=== PATIENT | male | born 1975 | race Caucasian/White ===

== ENCOUNTER 2016-03-04 08:21 | Emergency (ER) | payer OTHER ==
[2016-03-04 09:08] LABS: #Basophils 0.1 thou/uL (0.0-0.2); #Eosinphils 0.1 thou/uL (0.0-0.7); #Lymphocytes 2.1 thou/uL (1.20-3.40); #Monocytes 0.5 thou/uL (0.11-0.59); #Neutrophils 2.9 thou/uL (1.40-6.50); %Basophils 1.7 % (0.0-1.0); %Lymphocytes 36.7 % (21.0-51.0); %Monocytes 9.4 % (0.0-10.0); Hematocrit 43.1 % (42.0-52.0); Mean Platelet Volume 6.3 fL (7.4-10.4); Red Blood Cell (RBC) Count 4.64 mill/uL (4.70-6.10); White Blood Cell (WBC) Count 5.7 thou/uL (4.8-10.8)
--- NOTE | 2016-03-04 09:08 | RAD ---
FRONTAL RADIOGRAPH OF CHEST: Date: 03/04/16 COMPARISON: None available. HISTORY: Shortness of breath and dyspnea. FINDINGS: Heart and mediastinal contour grossly unremarkable. Lungs are clear. No acute osseous abnormality. IMPRESSION: No acute findings. POS: [facility]
[2016-03-04 09:24] LABS: Troponin I Less than 0.010 ng/mL (< 0.028)
[2016-03-04 09:31] LABS: ALT (SGPT) 680 U/L (0-55); AST (SGOT) 266 U/L (5-34); Alkaline Phosphatase 107 U/L (40-150); Anion Gap 10 mmol/L (10-20); BUN (Urea Nitrogen) 10 mg/dL (8.9-20.6); Bilirubin, Total 0.4 mg/dL (0.2-1.2); CK (CPK) 116 U/L (30-200); Calc. Creatinine Clearance 0 mL/min (70-130); Calcium 8.8 mg/dL (7.8-10.44); Carbon Dioxide 27 mmol/L (22-29); Chloride 107 mmol/L (98-107); Estimated GFR-MDRD Greater than 90; Globulin 3.1 g/dL (2.4-3.5); Protein, Total 7.1 g/dL (6.0-8.3)
--- NOTE | 2016-03-04 10:20 | ERRECORD ---
[facility] EMERGENCY RECORD HPI ANXIETY (10:56 JLOY) CHIEF COMPLAINT: Patient presents for evaluation of anxiety, Patient presents for evaluation of shortness of breath, Patient presents for evaluation of palpitations, Patient presents for evaluation of Pt with 1 hour of SOB and palpitations. Feels anxious. No previous episodes but has alot more stress curently than ever before in his life. HISTORIAN: History provided by patient. LOCATION: No localizing symptoms. QUALITY: Patient is alert and oriented to person, place and time, Sherri coma score is 15. TIME COURSE: Patient unable to describe onset of symptoms, Symptoms are improving, are constant. ASSOCIATED WITH: No associated depression, No associated syncope, No associated substance abuse, No associated tremulousness. EXACERBATED BY: Patient's condition exacerbated by financial issues, Patient's condition exacerbated by personal problems. RELIEVED BY: Patient's condition relieved by time. ROS (10:57 JLOY) CONSTITUTIONAL: Historian denies chills, denies fever. ENT: Historian denies rhinorrhea, denies sore throat. CARDIOVASCULAR: Historian denies chest pain, reports palpitations. RESPIRATORY: Historian denies cough, reports shortness of breath, denies sputum. GI: Historian denies abdominal pain, denies diarrhea, denies nausea, denies vomiting. GENITOURINARY MALE: Historian denies dysuria, denies hematuria. MUSCULOSKELETAL: Historian denies arthralgias, denies back pain, denies myalgias, denies neck pain. SKIN: Historian denies rash, denies skin changes. NEUROLOGIC: Historian denies dizziness, denies headache, denies paralysis, denies paresthesias, denies sensory changes. PAST MEDICAL HISTORY MEDICAL HISTORY: Flu vaccine not up to date, Tetanus immunization up to date, Pneumococcal vaccine not up to date. (08:29 JPAR) MALE SURGICAL HISTORY: Patient has no surgical history. (08:29 JPAR) SOCIAL HISTORY: Patient denies alcohol use, Patient denies drug use, Patient currently uses tobacco, smokes cigarettes, daily, Patient has smoked for 15 years, Patient smokes 1 pack per day, Patient currently uses tobacco, smokes cigarettes, daily, Patient has smoked for 15 years, Patient smokes 1 pack per day. (08:29 JPAR) NOTES: Nursing records reviewed, Agree with nursing records. (10:58 JLOY) &a-1R&a+25V*p+0X*a4256C*c202B*c15G*c2P*p-0X&a-25V&a+1R Name: Jasbir Blankenship : 1975 M40 MedRec: [id number] AcctNum: [id number] Prepared: [facility] Mar 04, 2016 11:02 by Interface Page 1 of 3 pMD [facility] EMERGENCY RECORD KNOWN ALLERGIES PCN CURRENT MEDICATIONS (08:28 JPAR) None VITAL SIGNS VITAL SIGNS: Resp: 18, Pain: 0, Time: 03/04/2016 08:25. (08:25 JPAR) BP: 143/93, Pulse: 68 (Regular), Resp: 17, Temp: 97.9 (Oral), Pain: 0, O2 sat: 97 on Room Air, Time: 03/04/2016 08:29. (08:29 JPAR) BP: 133/76, Pulse: 59, Resp: 17, Pain: 0, O2 sat: 98, Time: 03/04/2016 09:51. (09:51 JPAR) PHYSICAL EXAM (10:57 [facility]) CONSTITUTIONAL: Vital signs reviewed, Patient appears non toxic, Patient alert and oriented to person, place and time. EYES: Eye exam included findings of eyelids normal to inspection, Pupils equally round and reactive to light, Conjunctiva normal. ENT: Pharynx exam normal, Uvula exam normal, Tonsil exam normal, Mouth exam normal, mucous membranes moist. NECK: Neck exam included findings of normal range of motion, Trachea midline, no jugular venous distention, no cervical adenopathy. RESPIRATORY CHEST: Respiratory exam included findings of no respiratory distress, Breath sounds clear, No wheezing, No rales, No rhonchi, Chest exam included findings of chest movement symmetrical. CARDIOVASCULAR: Cardiovascular exam included findings of heart rate regular rate and rhythm, Heart sounds normal. ABDOMEN MALE: Abdominal exam included findings of abdomen nontender, Bowel sounds normal. BACK: Back exam included findings of normal inspection, range of motion normal. UPPER EXTREMITY: Upper extremity exam included findings of inspection normal, Radial pulse normal, no cyanosis, no clubbing, no edema. LOWER EXTREMITY: Lower extremity exam included findings of inspection normal, no edema, no calf tenderness. NEURO: Sherri coma scale 15, Neuro exam findings include patient oriented to person, place and time, Speech normal. SKIN: Skin exam included findings of skin warm, dry, and normal in color, no rash. PSYCHIATRIC: Affect, anxious. PROBLEM LIST No recorded problems DIAGNOSIS (10:02 JARROD) FINAL: PRIMARY: Anxiety. &a-1R&a+25V*p+0X*v2690E*c202B*c15G*c2P*p-0X&a-25V&a+1R Name: Jasbir Blankenship : 1975 10 MedRec: [id number] AcctNum: [id number] Prepared: Krystle Mar 04, 2016 11:02 by Interface Page 2 of 3 pMD [facility] EMERGENCY RECORD PRESCRIPTION (10: JARROD) clonazePAM: TABLET : 0.5 mg : ORAL : Quantity: 0.5 Unit: mg Route: ORAL Schedule: 2 times a day Dispense: 6 May substitute. Refills: No Refills . NOTES: as needed for anxiety No Refills. DISPOSITION PATIENT: Disposition Type: Discharge, Disposition: *Discharge Home. (10:02 JARROD) Patient left the department. (10:12 YURI) Cali: JARROD=MD Moisés, Ole WELCH=JEROME Ritter, Kadeem &a-1R&a+25V*p+0X*g4249W*c202B*c15G*c2P*p-0X&a-25V&a+1R Name: Jasbir Blankenship Shae : 1975 10 MedRec: [id number] AcctNum: [id number] Prepared: [facility] Mar 04, 2016 11:02 by Interface Page 3 of 3 pMD MTDD
--- NOTE | 2016-03-04 10:26 | PICIS ---
[facility] EMERGENCY RECORD TRIAGE (TueMar 04, 2016 08:27 JPAR) TRIAGE NOTES: shortness of breath, anxiety started 1 hour, increased stress lately. (TueMar 04, 2016 08:27 JPAR) PATIENT: NAME: Jasbir Blankenship, AGE: 40, GENDER: male, : Tue1975, TIME OF GREET: TueMar 04, 2016 08:21, PREFERRED LANGUAGE: Arabic, ETHNICITY: Not or , ECODE BILLING MAP: [facility], SSN: [id number], Zip Code: [address], KG WEIGHT: 95.25, PHONE: , , , PERSON ID: [id number], PCP: Greg . (TueMar 04, 2016 08:27 JPAR) COMPLAINT: NERVOUSNESS/SHORTNESS OF BREATH/CHEST PAIN. (TueMar 04, 2016 08:27 JPAR) ADMISSION: URGENCY: 3 Urgent, ADMISSION SOURCE: Work, TRANSPORT: CAR, BED: TRIAGE. (TueMar 04, 2016 08:27 JPAR) ASSESSMENT: Assessment: stress and anxiety w/ shortness of breath,started 1 hour ago at work, Symptoms began 1 hour, Symptoms began 1 hour ago. (08:29 JPAR) SIRS SCORING: Heart Rate 55-109 (0), Temp range 96.8-101.1 (0), respiratory rate 12-24 (0), Mental Status altered: no (0), Infection or Suspected Infection: No. (08:29 JPAR) TRIAGE SCREENING: Patient denies suicidal ideation, Patient denies presence of domestic violence. (08:29 JPAR) PROVIDERS: TRIAGE NURSE: Kadeem Ritter RN. (TueMar 04, 2016 08:27 JPAR) VITAL SIGNS: Resp 18, Pain 0, Time 03/04/2016 08:25. (08:25 JPAR) PREVIOUS VISIT ALLERGIES: PCN. (TueMar 04, 2016 08:27 JPAR) PCN. (08:29 JPAR) KNOWN ALLERGIES PCN CURRENT MEDICATIONS (08:28 JPAR) None VITAL SIGNS VITAL SIGNS: Resp: 18, Pain: 0, Time: 03/04/2016 08:25. (08:25 JPAR) BP: 143/93, Pulse: 68 (Regular), Resp: 17, Temp: 97.9 (Oral), Pain: 0, O2 sat: 97 on Room Air, Time: 03/04/2016 08:29. (08:29 JPAR) BP: 133/76, Pulse: 59, Resp: 17, Pain: 0, O2 sat: 98, Time: 03/04/2016 09:51. (09:51 JPAR) NURSING ASSESSMENT: CARDIOVASCULAR (08:32 JPAR) CONSTITUTIONAL: Patient arrives ambulatory, Gait steady, History obtained from patient, Patient appears, anxious, Patient cooperative, Patient alert, Oriented to person, place and time, Skin warm, Skin dry, Skin normal in color, Mucous membranes pink, Mucous membranes moist, Patient complains of Anxiety with SOB. PAIN: Patient rates pain as 0 out of 10. CARDIOVASCULAR: Cardiovascular assessment findings include heart &a-1R&a+25V*p+0X*z5892Q*c202B*c15G*c2P*p-0X&a-25V&a+1R Name: Jasbir Blankenship Shae : 1975 M40 MedRec: [id number] AcctNum: [id number] Prepared: Krystle Mar 04, 2016 11:07 by Interface Page 1 of 8 pMD [facility] EMERGENCY RECORD rate normal, Heart rhythm normal sinus, Left radial pulse +3(easily palpated, considered normal), Right radial pulse +3(easily palpated, considered normal), Left dorsalis pedis pulse +3(easily palpated, considered normal), Right dorsalis pedis pulse +3(easily palpated, considered normal), No associated diaphoresis, no associated dyspnea, no associated dizziness, no associated edema, no associated palpitations, no associated paresthesias, no associated syncopal episode, no associated weakness, No history of pulmonary embolism, No history of DVT or leg swelling. RESPIRATORY/CHEST: Breath sounds clear, Respiratory assessment findings include respiratory effort easy, Respirations regular, Conversing normally, Neck and chest exam findings include trachea midline, Chest expansion equal, Chest movement symmetrical, no signs of distress, no retractions noted, no cyanosis, no jugular vein distension, no tenderness to palpation, no crepitus noted, no subcutaneous emphysema noted, no deformity noted, Associated with cough, dry, non-productive, no associated fever, Associated with fume exposure, to smoke, Length of exposure (minutes): Pt smokes 1 pack daily. SAFETY: Side rails up, Cart/Stretcher in lowest position, Call light within reach, Hospital ID band on. NURSING ASSESSMENT: PSYCH/SOCIAL (08:39 JPAR) CONSTITUTIONAL: Patient arrives ambulatory, Gait steady, History obtained from patient, Patient appears, anxious, Patient cooperative, Patient alert, Oriented to person, place and time, Skin warm, Skin dry, Skin normal in color, Mucous membranes pink, Mucous membranes moist, Patient complains of Anxiety with SOB, Has been worrying about father that last year. PSYCH/SOCIAL: Psychiatric/social assessment findings include affect, anxious, no complaint of visual hallucinations, no complaint of auditory hallucinations, no complaint of tactile hallucinations, no suicidal ideations, no homicidal ideations, no reported overdose. SUICIDE RISK ASSESSMENT TOOL: Suicide Risk Assessment findings: Mental State (Low risk):, no psychotic symptoms, feels hopeful about the future, Suicide Attempt or Suicidal Thoughts (Low risk):, no suicidal thoughts, Substance Disorder (Low risk):, infrequent use of substances, Corroborative History (Low risk):, able to verify information and account of events of person at risk, Strengths and Support (Low risk):, patient is accepting help, Reflective Practice (Low risk):, high assessment confidence, low changeability, established good rapport, good engagement with patient, Suicide Risk: None, no evidence of current risk to the person, no thought of suicide or history of attempts, good social support network, This person's risk level in not highly changeable, No, there are no factors that indicate a level of uncertainty in this risk assessment, indicating an assessment confidence. SAFETY: Side rails up, Cart/Stretcher in lowest position, Call &a-1R&a+25V*p+0X*a6113L*c202B*c15G*c2P*p-0X&a-25V&a+1R Name: Jasbir Blankenship : 1975 M40 MedRec: [id number] AcctNum: [id number] Prepared: Krystle Mar 04, 2016 11:07 by Interface Page 2 of 8 pMD [facility] EMERGENCY RECORD light within reach, Hospital ID band on. NURSING PROCEDURE: BEDSIDE RADIOLOGY (08:52 CCRI) BEDSIDE RADIOLOGY: Bedside radiology performed by CC, Portable chest x-ray performed. NURSING PROCEDURE: DISCHARGE NOTE (10:05 JPAR) DISCHARGE: Patient discharged to home, ambulating without assistance, driving self, unaccompanied, Summary of Care printed/ provided, Patient requested and was provided an electronic copy of Discharge Instructions, Transition record given to patient, Discharge instructions given to patient, Simple or moderate discharge teaching performed, Prescriptions given and instructions on side effects given, Name of prescription(s) given: Clonazepam, Medication reconciliation form given, Above person(s) verbalized understanding of discharge instructions and follow-up care, Patient treated and evaluated by physician. BELONGINGS: Belongings and valuables with patient at time of discharge include:, Belongings remain with patient, Valuables remain with patient. SAFETY: Side rails up, Cart/Stretcher in lowest position, Call light within reach, Hospital ID band on. NURSING PROCEDURE: EKG CHART (08:32 JPAR) PATIENT IDENTIFIER: Patient actively involved in identification process, Patient's identity verified by patient stating name, Patient's identity verified by patient stating date, Patient's identity verified by hospital ID bracelet, Patient's identity verified by family member. EKG: EKG indicated for complaint of chest pain, EKG indicated for Anxiety, 12 lead EKG performed on the left chest, done by Juanita, first EKG. FOLLOW-UP: After procedure, EKG for interpretation given to Dr. Curiel. SAFETY: Side rails up, Cart/Stretcher in lowest position, Call light within reach, Hospital ID band on. NURSING PROCEDURE: LAB DRAW (08:50 JPAR) PATIENT IDENTIFIER: Patient actively involved in identification process, Patient's identity verified by patient stating name, Patient's identity verified by patient stating date, Patient's identity verified by hospital ID bracelet. LAB DRAW: Lab draw indicated for obtaining specimens for evaluation, Initial lab draw performed, by venipuncture, from left antecubital, in one attempt, Lab specimens labeled in the presence of the patient and sent to lab. FOLLOW-UP: After procedure, dressing applied to site, After procedure, no swelling at site, After procedure, no active bleeding from site. SAFETY: Side rails up, Cart/Stretcher in lowest position, Call &a-1R&a+25V*p+0X*i1240H*c202B*c15G*c2P*p-0X&a-25V&a+1R Name: Jasbir Blankenship : 1975 M40 MedRec: [id number] AcctNum: [id number] Prepared: TueMar 04, 2016 11:07 by Interface Page 3 of 8 pMD [facility] EMERGENCY RECORD light within reach, Hospital ID band on. NURSING PROCEDURE: NURSE NOTES (09:53 JPAR) NURSES NOTES: Patient in no apparent distress, Patient resting quietly, Patient is awaiting disposition, Notes: Pt in no distress w/ stable vitals, pt states he still feels anxious and jittery but less than when he came into ER. ORDER DETAILS Order Name: [employer] [facility], Status: Done, Time: 08:50 03/04/2016, User: ANA MARIA, - Ordered for: MD Curiel Joshua, - Entered by: MD Curiel Joshua - Krystle Mar 04, 2016 08:42, - Quantity: 1, Order Name: Cardiac Profile w/CKMB & Troponin - I, Status: Active, Time: 08:42 03/04/2016, User: JARROD, - Ordered for: MD Curiel Joshua, - Entered by: MD Curiel Joshua - Krystle Mar 04, 2016 08:42, - Quantity: 1, Order Name: CBC with Differential, Status: Active, Time: 08:42 03/04/2016, User: JARROD, - Ordered for: MD Curiel Joshua, - Entered by: MD Curiel Joshua - Krystle Mar 04, 2016 08:42, - Quantity: 1, Order Name: CK (CPK), Status: Active, Time: 08:42 03/04/2016, User: JARROD, - Ordered for: MD Curiel Joshua, - Entered by: MD Curiel Joshua - [facility] Mar 04, 2016 08:42, - Quantity: 1, Order Name: Comprehensive Metabolic Panel, Status: Active, Time: 08:42 03/04/2016, User: JLOY, - Ordered for: MD Curiel Joshua, - Entered by: MD Curiel Joshua - [facility] Mar 04, 2016 08:42, - Quantity: 1, Order Name: EKG 12 Lead in Emergency Room, Status: Active, Time: 08:42 03/04/2016, User: JARROD, - Ordered for: MD Curiel Joshua, - Entered by: MD Curiel Joshua - [facility] Mar 04, 2016 08:42, - Quantity: 1, Order Name: XR Chest 1 View Portable, Status: Active, Time: 08:42 03/04/2016, User: JARROD, - Ordered for: MD Curiel Joshua, - Entered by: MD Curiel Joshua - [facility] Mar 04, 2016 08:42, - Quantity: 1. HPI ANXIETY (10:56 JARROD) CHIEF COMPLAINT: Patient presents for evaluation of anxiety, Patient presents for evaluation of shortness of breath, Patient presents for evaluation of &a-1R&a+25V*p+0X*i7194Z*c202B*c15G*c2P*p-0X&a-25V&a+1R Name: Jasbir Blankenship : 1975 M40 MedRec: [id number] AcctNum: [id number] Prepared: TueMar 04, 2016 11:07 by Interface Page 4 of 8 pMD [facility] EMERGENCY RECORD palpitations, Patient presents for evaluation of Pt with 1 hour of SOB and palpitations. Feels anxious. No previous episodes but has alot more stress curently than ever before in his life. HISTORIAN: History provided by patient. LOCATION: No localizing symptoms. QUALITY: Patient is alert and oriented to person, place and time, [place] coma score is 15. TIME COURSE: Patient unable to describe onset of symptoms, Symptoms are improving, are constant. ASSOCIATED WITH: No associated depression, No associated syncope, No associated substance abuse, No associated tremulousness. EXACERBATED BY: Patient's condition exacerbated by financial issues, Patient's condition exacerbated by personal problems. RELIEVED BY: Patient's condition relieved by time. ROS (10:57 JLDENNIS) CONSTITUTIONAL: Historian denies chills, denies fever. ENT: Historian denies rhinorrhea, denies sore throat. CARDIOVASCULAR: Historian denies chest pain, reports palpitations. RESPIRATORY: Historian denies cough, reports shortness of breath, denies sputum. GI: Historian denies abdominal pain, denies diarrhea, denies nausea, denies vomiting. GENITOURINARY MALE: Historian denies dysuria, denies hematuria. MUSCULOSKELETAL: Historian denies arthralgias, denies back pain, denies myalgias, denies neck pain. SKIN: Historian denies rash, denies skin changes. NEUROLOGIC: Historian denies dizziness, denies headache, denies paralysis, denies paresthesias, denies sensory changes. PAST MEDICAL HISTORY MEDICAL HISTORY: Flu vaccine not up to date, Tetanus immunization up to date, Pneumococcal vaccine not up to date. (08:29 JPAR) MALE SURGICAL HISTORY: Patient has no surgical history. (08:29 JPAR) SOCIAL HISTORY: Patient denies alcohol use, Patient denies drug use, Patient currently uses tobacco, smokes cigarettes, daily, Patient has smoked for 15 years, Patient smokes 1 pack per day, Patient currently uses tobacco, smokes cigarettes, daily, Patient has smoked for 15 years, Patient smokes 1 pack per day. (08:29 JPAR) NOTES: Nursing records reviewed, Agree with nursing records. (10:58 JLOY) PHYSICAL EXAM (10:57 JLOY) CONSTITUTIONAL: Vital signs reviewed, Patient appears non toxic, Patient alert and oriented to person, place and time. EYES: Eye exam included findings of eyelids normal to inspection, &a-1R&a+25V*p+0X*g1758R*c202B*c15G*c2P*p-0X&a-25V&a+1R Name: Jasbir Blankenship Shae : 1975 M40 MedRec: [id number] AcctNum: [id number] Prepared: TueMar 04, 2016 11:07 by Interface Page 5 of 8 pMD [facility] EMERGENCY RECORD Pupils equally round and reactive to light, Conjunctiva normal. ENT: Pharynx exam normal, Uvula exam normal, Tonsil exam normal, Mouth exam normal, mucous membranes moist. NECK: Neck exam included findings of normal range of motion, Trachea midline, no jugular venous distention, no cervical adenopathy. RESPIRATORY CHEST: Respiratory exam included findings of no respiratory distress, Breath sounds clear, No wheezing, No rales, No rhonchi, Chest exam included findings of chest movement symmetrical. CARDIOVASCULAR: Cardiovascular exam included findings of heart rate regular rate and rhythm, Heart sounds normal. ABDOMEN MALE: Abdominal exam included findings of abdomen nontender, Bowel sounds normal. BACK: Back exam included findings of normal inspection, range of motion normal. UPPER EXTREMITY: Upper extremity exam included findings of inspection normal, Radial pulse normal, no cyanosis, no clubbing, no edema. LOWER EXTREMITY: Lower extremity exam included findings of inspection normal, no edema, no calf tenderness. NEURO: [place] coma scale 15, Neuro exam findings include patient oriented to person, place and time, Speech normal. SKIN: Skin exam included findings of skin warm, dry, and normal in color, no rash. PSYCHIATRIC: Affect, anxious. EVENTS TRANSFER: Triage to Emergency Triage. (TueMar 04, 2016 08:27 JPAR) Emergency Triage to Emergency Room -02. (08:28 JPAR) Removed from Emergency Emergency Room -02. (10:12 JPAR) PROBLEM LIST No recorded problems DIAGNOSIS (10:02 JLOY) FINAL: PRIMARY: Anxiety. DISPOSITION PATIENT: Disposition Type: Discharge, Disposition: *Discharge Home. (10:02 JLOY) Patient left the department. (10:12 JPAR) INSTRUCTION (10:03 JLOY) DISCHARGE: ANXIETY REACTION. FOLLOWUP: Kenji AHMADI, FLAKO, Gastroenterology, [address] [facility] [place] [place] [address], [phone], Follow up with Primary Care Physician in 5 days, Follow up with Specialist in 10-14 days. SPECIAL: Your liver had a few numbers that were higher than normal and could be a sign of inflammation. Please follow up with a &a-1R&a+25V*p+0X*z2666X*c202B*c15G*c2P*p-0X&a-25V&a+1R Name: Jasbir Blankenship : 1975 M40 MedRec: [id number] AcctNum: [id number] Prepared: TueMar 04, 2016 11:07 by Interface Page 6 of 8 pMD [facility] EMERGENCY RECORD GI doctor in the next few weeks to have this evaluated. PRESCRIPTION (:02 [facility]) clonazePAM: TABLET : 0.5 mg : ORAL : Quantity: 0.5 Unit: mg Route: ORAL Schedule: 2 times a day Dispense: 6 May substitute. Refills: No Refills . NOTES: as needed for anxiety No Refills. IMAGING *EKG: Image captured from scanner. (08:57 JPAR) *DISCHARGE INSTRUCTIONS RECEIPT: Image captured from scanner. (10:10 JPAR) *SUPPLY CHARGE SHEET: Image captured from scanner. (10:10 JPAR) ADMIN DIGITAL SIGNATURE: JEROME Ritter, Kadeem. (10:11 JPAR) MD Moisés, Ole. (10:58 JL) RESULTS LABORATORY: CBC with Differential Collection DT: TueMar 04, 2016 08:55, White Blood Cell (WBC) Count 5.7 thou/uL, Range (4.8-10.8), *Red Blood Cell (RBC) Count 4.64 - L mill/uL, Range (4.70-6.10), Hemoglobin 14.3 g/dL, Range (14.0-18.0), Hematocrit 43.1 %, Range (42.0-52.0), Mean Corpuscular Volume 93.0 fl, Range (80.0-94.0), Mean Corpuscular Hemoglobin 30.9 pg, Range (27.0-31.0), Mean Corpuscular HGB CONC 33.2 g/dL, Range (32.0-36.0), RBC Distribution Width 12.0 %, Range (11.5-14.5), Platelet Count 262 thou/uL, Range (130-400), *Mean Platelet Volume 6.3 - L fL, Range (7.4-10.4), %Neutrophils 50.1 %, Range (42.0-75.0), %Lymphocytes 36.7 %, Range (21.0-51.0), %Monocytes 9.4 %, Range (0.0-10.0), %Eosinophils 2.0 %, Range (0.0-10.0), *%Basophils 1.7 - H %, Range (0.0-1.0), #Neutrophils 2.9 thou/uL, Range (1.40-6.50), #Lymphocytes 2.1 thou/uL, Range (1.20-3.40), #Monocytes 0.5 thou/uL, Range (0.11-0.59), #Eosinphils 0.1 thou/uL, Range (0.0-0.7), #Basophils 0.1 thou/uL, Range (0.0-0.2). (09:15 [facility]) CK (CPK) Collection DT: TueMar 04, 2016 08:55, CK (CPK) 116 U/L, Range (30-200). (09:49 [facility]) Comprehensive Metabolic Panel Collection DT: TueMar 04, 2016 08:55, Sodium 140 mmol/L, Range (136-145), Potassium 3.9 mmol/L, Range (3.5-5.1), Chloride 107 mmol/L, Range (98-107), Carbon Dioxide 27 mmol/L, Range (22-29), Anion Gap 10 mmol/L, Range (10-20), &a-1R&a+25V*p+0X*l4071A*c202B*c15G*c2P*p-0X&a-25V&a+1R Name: Blankenship, Jasbir Shae : 1975 M40 MedRec: [id number] AcctNum: [id number] Prepared: TueMar 04, 2016 11:07 by Interface Page 7 of 8 pMD [facility] EMERGENCY RECORD BUN (Urea Nitrogen) 10 mg/dL, Range (8.9-20.6), Creatinine 0.78 mg/dL, Range (0.7-1.3), Estimated GFR-MDRD Greater than 90 , Reference Range for Estimated GFR: Greater than 90, mL/min/1.73 m2 NOTE: The MDRD equation has not been validated for use, with the elderly (over 70 years of age), women, patients with, serious comorbid condition or persons with extremes of body size, muscle, mass, or nutritional status. , *Glucose 146 - H mg/dL, Range (70-105), Calcium 8.8 mg/dL, Range (7.8-10.44), Bilirubin, Total 0.4 mg/dL, Range (0.2-1.2), Protein, Total 7.1 g/dL, Range (6.0-8.3), NOTE: Plasma values are generally 0.3 to 0.5 g/dL higher than serum values, due to the presence of fibrinogen. , Albumin 4.0 g/dL, Range (3.5-5.0), Globulin 3.1 g/dL, Range (2.4-3.5), Alb/Glob Ratio 1.3 g/dL, Range (1.2-2.2), Alkaline Phosphatase 107 U/L, Range (40-150), *AST (SGOT) 266 - H U/L, Range (5-34), *ALT (SGPT) 680 - H U/L, Range (0-55). (09:49 [facility]) Cardiac Profile w/CKMB & TropI Collection DT: TueMar 04, 2016 08:55, CKMB 1.5 ng/mL, Range (0-6.6), Troponin I Less than 0.010 ng/mL, Range (< 0.028), Reference Range , 0.00 - 0.028 ng/mL Negative 0.029 - 0.29 ng/mL , Indeterminate Greater or Equal to 0.3 ng/mL Strongly suggests [facility] , . (09:49 [facility]) [place]: CCRI=BECCA Huang Clemente JLOY=MD Moisés, Ole WELCH=JEROME Ritter Jason [facility]=Juanita Schilling &a-1R&a+25V*p+0X*k2325L*c202B*c15G*c2P*p-0X&a-25V&a+1R Name: BlankenshipJasbir : 1975 M40 MedRec: [id number] AcctNum: [id number] Prepared: TueMar 04, 2016 11:07 by Interface Page 8 of 8 pMD MTDD
== END 2016-03-04 10:05 | disposition home or self-care (01) ==
LOC: NAV ERS 08:21
DX: F41.9 Anxiety disorder, unspecified (principal); F17.210 Nicotine dependence, cigarettes, uncomplicated
CPT/HCPCS: 36415; 71010; 80053; 82553; 84484; 85025; 93005